=== PATIENT | male | born 1960 | race Hispanic/Latino ===

== ENCOUNTER 2024-11-03 13:09 | Emergency (ER) | payer MEDICARE ==
[~2024-11-03] VITALS: Ht 180.3 cm; Wt 77.1 kg
[2024-11-03 13:13] VITALS: PULSE 83; RESP 15; TEMP 97.8
[2024-11-03 14:13] LABS: BASOPHILS % 0.5 % (0.0-1.0); EOSINOPHILS # (AUTO) 0.6 (0.0-0.4); HEMATOCRIT 38.6 % (38.2-49.6); HEMOGLOBIN 12.2 g/dL (14.0-18.0); LYMPHOCYTES # (AUTO) 1.2 (1.0-3.2); LYMPHOCYTES % 15.8 % (18.0-39.1); MEAN CORPUSCULAR HEMOGLOBIN 29.2 pg (28-32); MEAN CORPUSCULAR HGB CONC 31.6 g/dL (31-35); MEAN CORPUSCULAR VOLUME 92.3 fL (81-99); MONOCYTES # (AUTO) 0.6 (0.2-0.8); NEUTROPHILS # (AUTO) 5.2 (2.1-6.9); NEUTROPHILS % 67.3 % (38.7-80.0); PLATELET COUNT 353 x10e3/uL (140-360); RED BLOOD COUNT 4.18 x10e6/uL (4.3-5.7); RED CELL DISTRIBUTION WIDTH 14.9 % (11.7-14.4); WHITE BLOOD COUNT 7.78 x10e3/uL (4.8-10.8)
[2024-11-03 14:38] LABS: ANION GAP 16.4 mmol/L (8-16); CREATININE, SERUM 0.93 mg/dL (0.72-1.25); POTASSIUM 4.4 mmol/L (3.5-5.1)
[2024-11-03] MEDS ORDERED: LIDOCAINE 2% /EPINEPHRINE 20 ML SDV INJ ONE (14:53)
[2024-11-03] MEDS ORDERED: SODIUM CHLORIDE 0.9% 250ML 250 ML ONE (14:53)
[2024-11-03] MEDS ORDERED: IOPAMIDOL 370 MG/ML 100 ML INFUS..BTL INJ ONE (14:53)
[2024-11-03 17:04] VITALS: BP 128/68; PULSE 74; RESP 18; TEMP 98.3; O2SAT 98
== END 2024-11-03 17:29 | disposition home or self-care (01) ==
LOC: ER 13:33
DX: T83.128A Displacement of other urinary devices and implants, initial encounter (principal); K21.9 Gastro-esophageal reflux disease without esophagitis; G82.20 Paraplegia, unspecified
CPT/HCPCS: 36415; 50431; 74176; 74470; 80048; 85025; 99284; C1769; C2625; J2004; J7050; Q9967; 50387

== ENCOUNTER → 2024-11-16 | Day surgery (SDC) | payer MEDICARE ==
[~2024-11-16] MED LIST: ACETAMINOPHEN 1000 MG/100 ML 0 ML IV ONE; BACTRIM 400-801 EACH PO; DEXAMETHASONE SOD PHOS INJ 4 MG/ML SDV ONE; EPHEDRINE SULFATE INJ 50 MG/ML VIAL ONE; FENTANYL CITRATE/PF 100MCG/2 ML INJ ONE; LIDOCAINE HCL 2% LOCAL INJ 5 ML SDV VIAL INJ ONE; MIRTAZAPINE15 MG PO; MULTI-VITAMIN1 EACH PO; ONDANSETRON HCL INJ 2MG/ML 2ML 2 MG/ML VIAL ONE; PROPOFOL IV EMULSION 10 MG/ML 20 ML VIAL ONE; SEVOFLURANE INHAL SOLN 250 ML PEN BTL ONE; VESICARE5 MG PO
[2024-11-16] MEDS: GENTAMICIN 80MG/NS 100 ML 200 ML IV ONE (07:33)
[2024-11-16] MEDS: MEROPENEM 1 GM VIAL ONE (07:33)
[2024-11-16] MEDS: LACTATED RINGER'S 1,000 ML ONE (07:34)
[2024-11-16 07:58] LABS: HEMATOCRIT 38.4 % (38.2-49.6); HEMOGLOBIN 12.4 g/dL (14.0-18.0); WHITE BLOOD COUNT 5.42 x10e3/uL (4.8-10.8)
[2024-11-16 07:59] LABS: BASOPHILS # (AUTO) 0.1 (0.0-0.1); BASOPHILS % 0.9 % (0.0-1.0); EOSINOPHILS # (AUTO) 0.4 (0.0-0.4); EOSINOPHILS % 7.9 % (0.0-6.0); LYMPHOCYTES # (AUTO) 1.7 (1.0-3.2); LYMPHOCYTES % 30.8 % (18.0-39.1); MEAN CORPUSCULAR HEMOGLOBIN 29.5 pg (28-32); MEAN CORPUSCULAR HGB CONC 32.3 g/dL (31-35); MEAN CORPUSCULAR VOLUME 91.4 fL (81-99); MONOCYTES # (AUTO) 0.6 (0.2-0.8); MONOCYTES % 10.7 % (4.4-11.3); NEUTROPHILS # (AUTO) 2.6 (2.1-6.9); NEUTROPHILS % 48.8 % (38.7-80.0); PLATELET COUNT 299 x10e3/uL (140-360)
[2024-11-16 08:32] LABS: ANION GAP 12.6 mmol/L (8-16); BLOOD UREA NITROGEN 16.37 mg/dL (7-26); CALCIUM 9.1 mg/dL (8.4-10.2); CREATININE, SERUM 1.16 mg/dL (0.72-1.25); POTASSIUM 4.6 mmol/L (3.5-5.1); URIC ACID 6.6 mg/dL (4.8-8.0)
[2024-11-16 12:58] VITALS: TEMP 97.4
[2024-11-16 16:35] VITALS: BP 131/84; PULSE 67; RESP 16; O2SAT 98
[2024-11-17 11:11] LABS: CALCIUM 9.3 mg/dL (8.6-10.2)
== END | disposition home or self-care (01) ==
LOC: OR 06:53
PROVIDERS: ATTEND Urology
DX: N20.0 Calculus of kidney (principal); R33.8 Other retention of urine; N13.30 Unspecified hydronephrosis; N35.812 Other bulbous urethral stricture, male; N13.5 Crossing vessel and stricture of ureter without hydronephrosis; N31.9 Neuromuscular dysfunction of bladder, unspecified; N13.70 Vesicoureteral-reflux, unspecified; N32.89 Other specified disorders of bladder; Z43.5 Encounter for attention to cystostomy; Z46.6 Encounter for fitting and adjustment of urinary device; Z43.6 Encounter for attention to other artificial openings of urinary tract; E78.5 Hyperlipidemia, unspecified; J43.9 Emphysema, unspecified; J45.909 Unspecified asthma, uncomplicated; K21.9 Gastro-esophageal reflux disease without esophagitis; G82.20 Paraplegia, unspecified; F41.9 Anxiety disorder, unspecified; F32.A Depression, unspecified; Z88.6 Allergy status to analgesic agent; Z01.810 Encounter for preprocedural cardiovascular examination; Z01.818 Encounter for other preprocedural examination; Z87.01 Personal history of pneumonia (recurrent); Z87.891 Personal history of nicotine dependence
CPT/HCPCS: 36415; 50389; 51705; 52332; 52356; 71046; 74018; 74420; 80048; 83970; 84550; 85025; 87086; 87186; 93005; C1769; C2617; J1100; J1580; J2003; J2185; J2405; J2704; J3010; J7121

== ENCOUNTER → 2024-12-07 | Day surgery (SDC) | payer MEDICARE ==
[~2024-12-07] MED LIST changes: -ACETAMINOPHEN 1000 MG/100 ML 0 ML IV ONE; -DEXAMETHASONE SOD PHOS INJ 4 MG/ML SDV ONE; +GLYCOPYRROLATE INJ 0.2 MG/ML VIAL ONE; +METOCLOPRAMIDE HCL 10 MG/2ML VIAL ONE; +PHENYLEPHRINE HCL 1% 10 MG/ML VIAL ONE
[2024-12-07] MEDS: GENTAMICIN 80MG/NS 100 ML 200 ML IV ONE (09:16)
[2024-12-07] MEDS: LACTATED RINGER'S 1,000 ML ONE (09:17)
[2024-12-07] MEDS: PIPERACILLIN/TAZOBACTAM 3.375 GM VIAL ONE (09:17)
[2024-12-07 09:53] LABS: BASOPHILS # (AUTO) 0.1 (0.0-0.1); EOSINOPHILS # (AUTO) 0.6 (0.0-0.4); EOSINOPHILS % 9.2 % (0.0-6.0); HEMATOCRIT 38.7 % (38.2-49.6); HEMOGLOBIN 12.8 g/dL (14.0-18.0); LYMPHOCYTES # (AUTO) 1.2 (1.0-3.2); LYMPHOCYTES % 17.2 % (18.0-39.1); MEAN CORPUSCULAR HEMOGLOBIN 29.8 pg (28-32); MEAN CORPUSCULAR HGB CONC 33.1 g/dL (31-35); MEAN CORPUSCULAR VOLUME 90.2 fL (81-99); MONOCYTES # (AUTO) 0.5 (0.2-0.8); MONOCYTES % 7.7 % (4.4-11.3); NEUTROPHILS # (AUTO) 4.5 (2.1-6.9); NEUTROPHILS % 64.3 % (38.7-80.0); PLATELET COUNT 297 x10e3/uL (140-360); RED BLOOD COUNT 4.29 x10e6/uL (4.3-5.7); RED CELL DISTRIBUTION WIDTH 14.6 % (11.7-14.4); WHITE BLOOD COUNT 6.92 x10e3/uL (4.8-10.8)
[2024-12-07 10:05] LABS: ANION GAP 13.3 mmol/L (8-16); CALCIUM 8.8 mg/dL (8.4-10.2); CREATININE, SERUM 0.94 mg/dL (0.72-1.25); POTASSIUM 4.3 mmol/L (3.5-5.1); URIC ACID 8.7 mg/dL (4.8-8.0)
[2024-12-07 11:55] VITALS: TEMP 98.2
[2024-12-07 13:10] VITALS: BP 128/88; PULSE 64; RESP 18; O2SAT 98
== END | disposition home or self-care (01) ==
LOC: OR 08:57
PROVIDERS: ATTEND Urology
DX: N20.0 Calculus of kidney (principal); R33.8 Other retention of urine; Z43.5 Encounter for attention to cystostomy; N31.9 Neuromuscular dysfunction of bladder, unspecified; N13.5 Crossing vessel and stricture of ureter without hydronephrosis; Z46.6 Encounter for fitting and adjustment of urinary device; N35.819 Other urethral stricture, male, unspecified site; N13.30 Unspecified hydronephrosis; N40.1 Benign prostatic hyperplasia with lower urinary tract symptoms; N13.8 Other obstructive and reflux uropathy; Z91.199 Patient's noncompliance with other medical treatment and regimen due to unspecified reason; E78.5 Hyperlipidemia, unspecified; K21.9 Gastro-esophageal reflux disease without esophagitis; G82.20 Paraplegia, unspecified; F41.9 Anxiety disorder, unspecified; F32.A Depression, unspecified; Z88.6 Allergy status to analgesic agent; Z79.899 Other long term (current) drug therapy; Z87.891 Personal history of nicotine dependence
CPT/HCPCS: 36415; 51705; 52352; 74420; 80048; 84550; 85025; 87086; 87186; 88300; C1766; C1769; J1580; J2003; J2371; J2405; J2543; J2704; J2765; J3010; J7121